=== PATIENT | male | born 1970 | race African-American/Black ===

== ENCOUNTER 2016-12-27 19:13 | Emergency (ER) | payer MEDICAID ==
[2016-12-27 19:16] VITALS: BP 227/112; PULSE 80; RESP 16; TEMP 97.8; O2SAT 98
--- NOTE | 2016-12-27 19:56 | PD ---
Physical Exam Time Seen by Provider: 19:54 Narrative 46yo M c/o low back pain today. Denies injury. BP elevated in ER and has not taken BP meds in 2 years. Denies chest pain, SOB, BLEDSOE, N, V. Mykel IV drugs, [place]. Denies fever. Patient seen in triage. VS reviewed. Awaiting bed placement. Data Data Last Documented VS Vital Signs Date Time Temp Pulse Resp B/P Pulse Ox O2 Delivery O2 Flow Rate FiO2 12/27/16 19:16 97.8 80 16 227/112 98 Room Air MDM Supervised Visit with DARBY: No Scripts No Active Prescriptions or Reported Meds aJye Garcia Dec 27, 2016 19:56
[2016-12-27] MEDS ORDERED: KETOROLAC TROMETHAMINE 60 MG/2 ML (IM) VIAL IM ONE (20:30)
[2016-12-27] MEDS ORDERED: cloNIDine HCL 0.1 MG TAB PO ONE (20:30)
[2016-12-27] MEDS ORDERED: ORPHENADRINE INJ 60 MG/2 ML AMP IM ONE (20:30)
--- NOTE | 2016-12-27 20:30 | PD ---
HPI Chief Complaint: Back/ Neck Pain or Injury Time Seen by Provider: 20:25 Travel History International Travel<30 days: No Contact w/Intl Traveler<30days: No Traveled to known affect area: No History of Present Illness HPI Patient is a 46-year-old male presenting to the emergency department for evaluation of low back pain. Patient states the pain started today when he lifted several heavy cable boxes. He states the pain is worse when standing, he has not taken any medications to alleviate the pain. He reports his pain is a 9 out of 10 and describes as aching and sore. Patient denies any formal diagnosis of hypertension in the past but states he's been told his blood pressure is been elevated. He has not had any medical insurance to follow up with a primary care provider. He denies any radiation of his back pain, no saddle paresthesia, no bladder or bowel incontinence. He further denies any chest pain, shortness of breath. PFSH Past Medical History Medical History: Denies Significant Hx Arthritis: No Asthma: No Autoimmune Disease: No Blood Disorders: No Anxiety: No Depression: No Heart Rhythm Problems: No Cancer: No Cardiovascular Problems: No High Cholesterol: No Chemotherapy: No Chest Pain: No Congestive Heart Failure: No COPD: No Cerebrovascular Accident: No Diabetes: No Endocrine: No Glaucoma: No Genitourinary: No Headaches: No Hypertension: No Kidney Stones: No Musculoskeletal: No Neurologic: No Psychiatric: No Respiratory: No Myocardial Infarction: No Radiation Therapy: No Renal Failure: No Seizures: No Sickle Cell Disease: No Sleep Apnea: No Thyroid Disease: No Past Surgical History Surgical History: No Previous Surgery Abdominal Surgery: No AICD: No Cardiac Surgery: No Ear Surgery: No Endocrine Surgery: No Eye Surgery: No Genitourinary Surgery: No Gynecologic Surgery: No Oral Surgery: No Pacemaker: No Thoracic Surgery: No Social History Alcohol Use: Yes Tobacco Use: No Substance Use: No Allergies-Medications (Allergen,Severity, Reaction): Coded Allergies: No Known Allergies (Verified , 12/27/16) Reported Meds & Prescriptions Reported Meds & Active Scripts Active No Active Prescriptions or Reported Medications Review of Systems Except as stated in HPI: all other systems reviewed are Neg Musculoskeletal: Positive: Myalgias, Cramping Physical Exam Narrative GENERAL: Overweight, well-developed, alert male. Resting comfortably in no acute distress. SKIN: Warm and dry. HEAD: Atraumatic. Normocephalic. EYES: Pupils equal and round. No scleral icterus. No injection or drainage. ENT: No nasal bleeding or discharge. Mucous membranes pink and moist. NECK: Trachea midline. No JVD. CARDIOVASCULAR: Regular rate and rhythm. RESPIRATORY: No accessory muscle use. Clear to auscultation. Breath sounds equal bilaterally. GASTROINTESTINAL: Abdomen soft, non-tender, nondistended. Hepatic and splenic margins not palpable. MUSCULOSKELETAL: Extremities without clubbing, cyanosis, or edema. No obvious deformities. Tenderness to palpation in paraspinal musculature in the lumbar region bilaterally. No spinal tenderness or step-off noted. NEUROLOGICAL: Awake and alert. No obvious cranial nerve deficits. Motor grossly within normal limits. Five out of 5 muscle strength in the arms and legs. Normal speech. PSYCHIATRIC: Appropriate mood and affect; insight and judgment normal. Data Data Last Documented VS Vital Signs Date Time Temp Pulse Resp B/P Pulse Ox O2 Delivery O2 Flow Rate FiO2 12/27/16 19:16 97.8 80 16 227/112 98 Room Air Orders Ketorolac Inj (Toradol Inj) (12/27/16 20:30) Orphenadrine Inj (Norflex Inj) (12/27/16 20:30) Clonidine (Catapres) (12/27/16 20:30) MDM Medical Decision Making Medical Screen Exam Complete: Yes Emergency Medical Condition: Yes Medical Record Reviewed: Yes Interpretation(s) Vital Signs Date Time Temp Pulse Resp B/P Pulse Ox O2 Delivery O2 Flow Rate FiO2 12/27/16 19:16 97.8 80 16 227/112 98 Room Air Differential Diagnosis Elevated blood pressure reading versus hypertensive urgency versus muscle strain versus spasm versus discogenic pain versus other Narrative Course Patient is a 46-year-old male presenting with low back pain, subsequently noted to have elevated blood pressure reading in triage. Blood pressure was reassessed in room at 218/128. Toradol and Norflex ordered for back pain. Clonidine 0.1 mg by mouth 1 dose ordered. Will reassess. 2129 - Pain is mildy improved with medications. BP improved to 183/108 1 hour after clonidine administration. Pt will be discharged home with a prescription for amlodipine. He will be given information regarding the [facility]. He was advised to follow up to have blood pressure managed. He was advised on health risks associated with uncontrolled hypertension. Pt and verbalized understanding. He was encouraged to apply warm moist heat to affected area, continue range of motion exercises, avoid bed rest, avoid exacerbating activities. He was advised to return to emergency department immediately for any new or worsening symptoms. Patient stable for discharge. Diagnosis Primary Impression: Strain of lumbar paraspinal muscle Qualified Code: S39.012A - Strain of lumbar paraspinal muscle, initial encounter Additional Impressions: Spasm of lumbar paraspinous muscle Hypertension Qualified Code: I10 - Essential hypertension Referrals: [facility] 3 days Patient Instructions: General Instructions, Hypertension (DC), Muscle Spasm (ED ), Muscle Strain (ED) Additional Instructions: Follow-up with the [facility] Take medications as directed Return to emergency department for any new or worsening symptoms Apply warm moist heat to the affected area, continue range of motion exercises, avoid exacerbating activities, avoid bed rest Med/Other Pt SpecificInfo: Prescription(s) given Scripts Amlodipine 10 Mg Tab10 Mg PO DAILY #30 TAB Ref 0 Prov:Mavis Calderon 12/27/16 Cyclobenzaprine (Flexeril)10 Mg Tab10 Mg PO TID PRN (MUSCLE SPASM) 10 Days Ref 0 Prov:Mavis Calderon 12/27/16 Meloxicam 15 Mg Tab15 Mg PO DAILY PRN (PAIN SCALE 1 TO 10) #30 TAB Ref 0 Prov:Mavis Calderon 12/27/16 Disposition: 01 DISCHARGE HOME Condition: Stable Mavis Calderon Dec 27, 2016 20:30
[2016-12-27] MEDS ORDERED: CYCL1TAB29 PO ×2 (21:37→21:38)
[2016-12-27] MEDS ORDERED: MELO-1 PO ×2 (21:37→21:38)
[2016-12-27] MEDS ORDERED: AMLO10TA2 PO ×2 (21:37→21:38)
[2016-12-27 22:11] VITALS: BP 166/89
== END 2016-12-27 22:11 | disposition home or self-care (01) ==
LOC: NEPD 19:13
DX: S39.012A Strain of muscle, fascia and tendon of lower back, initial encounter (principal); M62.830 Muscle spasm of back; I10 Essential (primary) hypertension; X50.0XXA Overexertion from strenuous movement or load, initial encounter; Y93.89 Activity, other specified; Y99.0 Civilian activity done for income or pay
CPT/HCPCS: 96372; 99284; J1885; J2360